=== PATIENT | male | born 1995 | race Caucasian/White ===

== ENCOUNTER 2021-07-25 10:55 | Emergency (ER) | payer OTHER, SELFPAY ==
[2021-07-25 10:56] VITALS: BP 152/88; PULSE 75; RESP 17; TEMP 36.6; O2SAT 95; BMI 43.9
--- NOTE | 2021-07-25 11:10 | EDS_ITS ---
HPI History of Present Illness Chief Complaint: Abd Pain Informant: patient Narrative Narrative: 26-year-old male states at 930 this morning he had been out for a couple hours. He took a Zoloft with some water and developed a sharp pain is in his epigastrium that radiated straight through to his back. He states that he felt that perhaps it was starting to feel like heartburn so he took a couple antacids. He felt nauseous at one point but did not throw up. He has not moved his bowels yet today. He denies any chest symptoms. No fever. No prior surgeries. Does not take any other medications. [facility] Medical History Depression Allergy/AdvReac Type Severity Reaction Status Date / Time Penicillins Allergy Hives Verified 07/25/21 10:55 Surgical History no surgical history no surgical history Social History (Updated 07/25/21 @ 11:[address] Eber Garber, ) current gender identity: male Smoking Status: Never smoker seatbelt use: always ROS ROS ED Constitutional Constitutional ED: Denies chills or weight loss Eyes Eyes: Denies change in vision or diplopia ENT ENT ED: Denies ear pain, rhinorrhea or sore throat Cardiovascular Cardiovascular: Denies chest pain, orthopnea, palpitations or racing heartbeat Respiratory/Chest Respiratory/Chest: Denies cough, dyspnea or orthopnea Gastrointestinal Gastrointestinal: Reports abdominal pain and nausea; Denies diarrhea or vomiting Genitourinary Genitourinary ED: Denies dysuria, hematuria or urinary frequency Musculoskeletal Musculoskeletal: Denies arthralgias or myalgias Integumentary Denies abscess or rash Neurologic Neurologic: Denies headache(s) or weakness Psychiatric Psychiatric: Denies anxiety, depression, suicidal ideation or suicidal thoughts Endocrine Endocrinology: Denies polydipsia, polyphagia or polyuria Allergic/Immunologic Allergic/Immunologic ED: Denies mouth swelling, tongue swelling or urticaria EXAM Physical Exam Const Vital Signs: 07/25/21 10:56 Temperature 97.9 F Temperature Source Temporal Pulse Rate 75 Respiratory Rate 17 Blood Pressure 152/88 H Blood Pressure Mean 109 Pulse Ox 95 Oxygen Delivery Method Room Air Positive well nourished and well developed General Appearance ED: well developed HEENT Reports normocephalic, head/scalp atraumatic and moist mucous membranes Eyes PERRL and EOMs intact bilaterally Neck no lymphadenopathy, supple and no JVD Resp normal respiratory effort and clear to auscultation bilaterally Cardio regular rate, regular rhythm and no murmurs GI normal to inspection, nondistended, normoactive bowel sounds and non-tender Palpation: soft Back/Spine no CVA tenderness and normal ROM Extremity normal to inspection General Extremety ED: Negative for edema General Extremity: Negative for edema Neuro oriented x3 and CN's II-XII intact bilaterally Sensorium / Orientation: alert Motor Exam: strength 5/5 throughout Psych mental status grossly normal Mood & Affect: Negative for depressed or tearful Skin no rashes or lesions noted and no wounds MDM MDM MDM Narrative Medical decision making narrative: Basic blood work was obtained and negative. Patient received a GI cocktail. He states that this did make his pain go away but his symptoms have returned albeit less in intensity. At this point patient most likely has a gastritis. I can prescribe some Carafate and Protonix. Lab Data Attestation: I reviewed the patient's lab results. Labs: Laboratory Results - last 24 hr 07/25/21 07/25/21 11:20 11:20 WBC 5.8 RBC 4.78 Hgb 14.7 Hct 43.0 MCV 90.0 MCH 30.8 MCHC 34.2 RDW Std Deviation 38.5 RDW Coeff of Sadi 11.8 Plt Count 175 MPV 11.1 Immature Gran % (Auto) 0.200 Neut % (Auto) 37.9 L Lymph % (Auto) 47.1 H Hamblen % (Auto) 10.1 H Eos % (Auto) 3.1 Baso % (Auto) 1.6 H Absolute Neuts (auto) 2.2 Absolute Lymphs (auto) 2.71 Nucleated RBC % 0 Sodium 140 Potassium 3.9 Chloride 108 H Carbon Dioxide 25.0 Anion Gap 7 BUN 10 Creatinine 1.04 Estim Creat Clear Calc 112.11 Est GFR (MDRD) Af Amer 112 Est GFR (MDRD) Non-Af 92 BUN/Creatinine Ratio 9.6 L Glucose 95 Calcium 8.7 Total Bilirubin 0.50 AST 42 H ALT 51 Alkaline Phosphatase 115 Total Protein 7.7 Albumin 3.5 Globulin 4.2 Albumin/Globulin Ratio 0.8 L Lipase 54 L Discharge Plan Triage Chief Complaint: Abd Pain ED Provider: Eber Garber Dx/Rx/DC Orders Primary Care Provider: Oswald Shaw
[2021-07-25] MEDS: Mag Hydrox/Al Hydrox/Simeth 30 ML UDC PO (11:23)
[2021-07-25 11:30] LABS: Absolute Lymphocyte Count 2.71 X10^3/uL (0.83-4.51); Absolute Neutrophil Count 2.2 X10^3/uL (2.0-7.7); Basophil# 0.09 X10^3/uL; Basophil% 1.6 % (0-1); Eosinophil# 0.18 X10^3/uL; Eosinophils% 3.1 % (0-5); Hemoglobin 14.7 g/dL (13.0-16.5); Lymphocyte # 2.71 X10^3/ul (0.83-4.51); Lymphocyte % 47.1 % (19-41); Mean Corp Hgb Conc 34.2 g/dL (32-36); Mean Corpuscular Hgb 30.8 pg (27.0-32.0); Mean Platelet Vol. 11.1 fl (6.2-12.0); Monocyte# 0.58 X10^3/uL; Monocyte% 10.1 % (0-10); NRBC Flagged by Analyzer 0 % (0-5); Neutrophil # 2.18 X10^3/uL (2.7-7.7); Neutrophil % 37.9 % (47-70); Platelet Count 175 K/mm3 (150-450); RBC Distribution Width CV 11.8 % (11.6-14.6); RBC Distribution Width SD 38.5 fl (35.1-43.9); Red Blood Count 4.78 M/mm3 (4.6-6.2); White Blood Count 5.8 K/mm3 (4.4-11.0)
[2021-07-25 11:45] LABS: ALB/GLOB Ratio 0.8 RATIO (0.9-2.4); AST(SGOT) 42 U/L (15-37); Alanine Aminotransfer ALT/SGPT 51 U/L (16-61); Albumin, Serum 3.5 g/dL (3.2-5.0); Alkaline Phosphatase 115 U/L (45-117); Anion Gap 7 (5-15); BUN 10 mg/dL (7-18); BUN/Creat Ratio 9.6 RATIO (10-20); Calcium,Total 8.7 mg/dL (8.5-10.1); Chloride 108 mmol/L (98-107); Creatinine, Serum 1.04 mg/dL (0.70-1.30); EST Glomerular Filtration Rate 92 mL/min (>60); Est Glom Filt Rate - Afr Amer 112 mL/min (>60); Estimated Creatinine Clearance 112.11 ml/min; Globulin 4.2 g/dL (2.2-4.2); Glucose 95 mg/dL (74-106); Lipase 54 U/L (73-393); Potassium 3.9 mmol/L (3.5-5.1); Protein, Total 7.7 g/dL (6.4-8.2); Sodium Level 140 mmol/L (136-145)
[2021-07-25 12:17] VITALS: BP 108/77; PULSE 62; RESP 15; O2SAT 98
== END 2021-07-25 12:20 | disposition home or self-care (01) ==
PROVIDERS: Emergency Provider Emergency Medicine; PCP Family Medicine
DX: K29.70 Gastritis, unspecified, without bleeding (principal)
CPT/HCPCS: 80053; 83690; 85025; 99284; A4216

== ENCOUNTER 2025-03-13 19:47 | Emergency (ER) | payer BC, SELFPAY ==
[2025-03-13 19:47] VITALS: BP 153/85; PULSE 121; RESP 17; TEMP 36.4; O2SAT 99
--- NOTE | 2025-03-13 22:09 | EDS_ITS ---
HPI History of Present Illness Chief Complaint: Rash Informant: patient Onset/Context/Timing Onset: Days (4-5) Context: Gradual Onset Timing: Continuous Quality: Pruritic, patchy Location: Generalized Worsened by: Nothing Relieved by: Nothing Narrative Narrative: Patient presents with pruritic rash that has been getting worse over the past 4 to 5 days. Patient states he was recently prescribed a Z-Cameron. Patient states that shortly after he finished this, he developed the generalized rash. Patient states his patchy. Patient states it is pruritic. Patient states nothing makes it worse. Patient states nothing makes it better. Patient denies any other new exposures such as new foods, soaps, shampoos, laundry detergents, fabric softeners, or colognes. Patient states that earlier today he felt like his throat was swelling. Patient states this has resolved. Patient states he has not taken anything at home prior to arrival. Patient states he has a history of an allergy to penicillins but denies any history of allergies to macrolides. [facility] Medical History (Updated 03/13/25 @ 22:[address] Nikko Vazquez DO) Depression Home Medications ?Medication ?Instructions ?Recorded ?Last Taken ?Type prednisone 20 mg tablet 60 mg (3 x 20 mg) PO DAILY # 12 03/13/25 Unknown Rx TABLETS Allergy/AdvReac Type Severity Reaction Status Date / Time Penicillins Allergy Hives Verified 03/13/25 19:51 Surgical History (Updated 03/13/25 @ 22:[address] Nikko Vazquez DO) History of nasal surgery Hx of tonsillectomy Social History Smoking Status: Never smoker seatbelt use: always ROS ROS ED Constitutional Constitutional ED: Denies chills or fever(s) Eyes Eyes: Denies blurry vision or change in vision ENT ENT ED: Denies rhinorrhea or sore throat Cardiovascular Cardiovascular: Denies chest pain or palpitations Respiratory/Chest Respiratory/Chest: Denies cough or dyspnea Gastrointestinal Gastrointestinal: Denies nausea or vomiting Genitourinary Genitourinary ED: Denies dysuria or hematuria Musculoskeletal Musculoskeletal: Denies back pain or neck pain Integumentary Reports rash; Denies abscess Neurologic Neurologic: Denies headache(s) or weakness Allergic/Immunologic Allergic/Immunologic ED: Reports urticaria; Denies mouth swelling EXAM Physical Exam Const Vital Signs: 03/13/25 19:47 Temperature 97.5 F L Temperature Source Temporal Pulse Rate 121 H Respiratory Rate 17 Blood Pressure 153/85 H Blood Pressure Mean 107 Pulse Ox 99 Positive well nourished and well developed General Appearance ED: well developed and NAD HEENT Reports moist mucous membranes Neck supple Resp normal respiratory effort and clear to auscultation bilaterally Cardio regular rate and regular rhythm GI non-tender and non-distended Palpation: soft Extremity normal to inspection General Extremety ED: Negative for edema or tenderness General Extremity: Negative for edema Neuro oriented x3, CN's II-XII intact bilaterally and no sensory deficits noted Sensorium / Orientation: alert Motor Exam: strength 5/5 throughout Psych mental status grossly normal MDM MDM MDM Narrative Medical decision making narrative: Patient was advised that this is probably an allergic reaction to something. It could be related to the Zithromax. Patient was given a dose of prednisone here. Patient is given a prescription for prednisone. Patient was instructed to use Benadryl, Claritin, or Zyrtec as needed for any itching. Patient was instructed to follow-up with his primary care physician in 5 to 7 days. Patient was ad vised he may need allergy testing to determine the true etiology of the allergic reaction. Patient understood and was agreeable with plan. All questions were answered Discharge Plan Triage Chief Complaint: Rash ED Provider: Nikko Vazquez Dx/Rx/DC Orders Clinical Impression: Allergic reaction, Urticaria Instructions: ED Hives (Adult) Prescriptions: New prednisone 20 mg tablet 60 mg PO DAILY Qty: 12 0RF Primary Care Provider: Care Physician,No Primary Referrals: Oswald Shaw MD [Non-Staff] - 5-7 Days Print Language: Eritrean Disposition Disposition: Home, Self Care
--- OUTSIDE RECORDS SUMMARY | 2025-03-13 22:27 | XMS RPT_ITS | CCD ---
Author Organization [facility] Inform ion Partnership [facility] Care Team Providers Care Waste Hand Name Role Phone BRIANNA ADKINS Unavailable Unavailabl e ELIZABETH ALFONSO Unavailable Unavailable Unavailable Primary Care Provider Unavailabl e Allergies Allergy Classification Reported Allergen(s) Allergy Type Date of Onset Reaction(s) Facility (1 source) Penicillins Drug Allergy 03-25-2024 [facility] Medications Current Medications Medication Drug Class(es) Dates Sig (Normalized) Sig (Original) doxycycline hyclate 100 mg oral tablet (1 source) Tetracycline-clas s Drug Start: 03-25-2024 End: 03-30-2024 take 1 tablet by mouth twice daily doxycycline (VIBRA-TABS) 100 mg tablet Indications: Bacterial sinusitis Take 1 tablet by mouth two times a day for 5 days. 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] Onset: 07-18-2018 Episodic Other upper respiratory disease (2 sources) Nasal congestion; Translations: [Nasal congestion] Onset: 07-18-2018 Episodic Other upper respiratory disease (2 sources) Deviated nasal septum; Translations: [Deviated nasal septum] Onset: 07-18-2018 Episodic Other upper respiratory disease (2 sources) Hypertrophy of nasal turbinates; Translations: [Hypertrophy of nasal turbinates] Onset: 07-18-2018 Episodic Other upper respiratory infections (1 source) Bacterial sinusitis; Translations: [Chronic sinusitis, unspecified] 03-25-2024 Chronic Results Test Name Value Interpretation Reference Range Facility CNOVon 03-25-2024 CNOV Office Visit ([facility] ) -- MARIO MATIAS ([id number]) 1995 M Date Time Provider Department 03/25/24 12:30 PM CADY VARGAS [facility] During your visit today, we recorded the following information about you: Temperature Pulse Respiration Blood pressure 98.7 degrees 112/minute 22/minute 138/83 Weight 149 kg Cady Vargas APRN.EYELET RIVETER 03/25/2024 12:43 PM Signed This note was created using [employer]. Subjective Mario Matias is a 28 year old male. HPI Pt has had nasal congestion for the last five days. Review of Systems Constitutional: Positive for fever. HENT: Positive for congestion, rhinorrhea and sinus pressure. Respiratory: Positive for cough. Objective BP 138/83 Pulse 112 Temp 37.1 ?C (98.7 ?F) Resp 22 Wt (!) 149 kg (328 lb 7.8 oz) SpO2 98% Physical Exam Vitals and nursing note reviewed. Constitutional: General: He is not in acute distress. Appearance: Normal appearance. He is not ill-appearing. HENT: Head: Normocephalic. Mouth/Throat: Mouth: Mucous membranes are moist. Eyes: Conjunctiva/sclera: Conjunctivae normal. Cardiovascular: Rate and Rhythm: Normal rate and regular rhythm. Pulmonary: Effort: Pulmonary effort is normal. Breath sounds: Normal breath sounds. Musculoskeletal: General: Normal range of motion. Cervical back: Normal range of motion. Skin: General: Skin is warm and dry. Neurological: General: No focal deficit present. Mental Status: He is alert. Psychiatric: Mood and Affect: Mood normal. Behavior: Behavior normal. Assessment and Plan ASSESSMENT/PLAN: 1. Bacterial sinusitis - ICD9: 473.9, 041.9, ICD10: J32.9, B96.89 - Will begin treatment with as per antibiotic as written, see orders - Supportive care with plenty of fluids, rest, and analgesia prn. - Follow up in one week if symptoms persist or worsen. -Discussed monitoring of symptoms but pt prefers to start antibiotics as he is already five days into his symptoms - DOXYCYCLINE HYCLATE 100 MG TABLET Cady Vargas APRN.EYELET RIVETER Allergies As of Date: 03/25/2024 Noted Allergy Reaction PENICILLINS 03/25/2024 4 - Hives Date Reviewed: 03/25/2024 Reviewed by: Cady Vargas APRN.CNP - Fully Assessed Reason for Visit: Sinus Problem [99] Cmt: Pressure and pain in sinus, nasal drainage, post nasal, nasal and head congestion x 5 days Primary Visit Diagnosis:Bacterial sinusitis [J32.9, B96.89] Order(s):doxycycline (VIBRA-TABS) 100 mg tabletTake 1 tablet by mouth two times a day for 5 days.Disp: 10 tabletRfl: 0 Prescriptions as of 03/25/2024 - doxycycline (VIBRA-TABS) 100 mg tablet Take 1 tablet by mouth two times a day for 5 days. Problem List As Of Date: 03/25/2024 (None) Prescriptions ordered this encounter Disp Refills Start End DOXYCYCLINE HYCLATE 100 MG TABLET 10 t* 0 03/25/2024 03/30/2024 Route: ORAL Sig: Take 1 tablet by mouth two times a day for 5 days. Encounter Status:Closed by CADY VARGAS on 03/25/24 Normal [facility] CBC W/Diff, Automatedon 10-2 Absolute Lymph 2.71 X10 3/uL Normal 0.83-4.51 [facility] Comment on above: Performed By: #### L 501.2450, L500.4050, L100.0100 #### [facility] [address] [place], [address] Absolute Neut 2.2 X10 3/uL Normal 2.0-7.7 [facility] Comment on above: Performed By: #### L 501.2450, L500.4050, L100.0100 #### [facility] [address] [place], [address] Basophils/100 WBC (Bld) 1.6 % High 0-1 [facility] Comment on above: Performed By: #### L 501.2450, L500.4050, L100.0100 #### [facility] [address] [place], [address] Eosinophils/100 WBC (Bld) 3.1 % Normal 0-5 [facility] Comment on above: Performed By: #### L 501.2450, L500.4050, L100.0100 #### [facility] [address] [place], [address] Erythrocyte distribution width (RBC) [Ratio] 11.8 % Normal 11.6-14.6 [facility] Comment on above: Performed By: #### L 501.2450, L500.4050, L100.0100 #### [facility] [address] [place], [address] Hematocrit (Bld) [Volume fraction] 43.0 % Normal 40-54 [facility] Comment on above: Performed By: #### L 501.2450, L500.4050, L100.0100 #### [facility] [address] [place], [address] Hemoglobin (Bld) [Mass/Vol] 14.7 g/dL Normal 13.0-16.5 [facility] Comment on above: Performed By: #### L 501.2450, L500.4050, L100.0100 #### [facility] [address] [place], [address] IG% 0.200 Normal 0.0-0.9 [facility] Comment on above: Result Comment: IG% - Immature Granulocytes (promyelocytes, myelocytes and metamyelocytes) > 1% indicates that a LEFT SHIFT is Present. Performed By: #### L 501.2450, L500.4050, L100.0100 #### [facility] [address] [place], [address] Lymphocytes/100 WBC (Bld) 47.1 % High 19-41 [facility] Comment on above: Performed By: #### L 501.2450, L500.4050, L100.0100 #### [facility] [address] [place], [address] MCH (RBC) [Entitic mass] 30.8 pg Normal 27.0-32.0 [facility] Comment on above: Performed By: #### L 501.2450, L500.4050, L100.0100 #### [facility] [address] [place], [address] MCHC (RBC) [Mass/Vol] 34.2 g/dL Normal 32-36 [facility] Comment on above: Performed By: #### L 501.2450, L500.4050, L100.0100 #### [facility] [address] [place], [address] MCV (RBC) [Entitic vol] 90.0 fL Normal 80-94 [facility] Comment on above: Performed By: #### L 501.2450, L500.4050, L100.0100 #### [facility] [address] [place], [address] Monocytes/100 WBC (Bld) 10.1 % High 0-10 [facility] Comment on above: Performed By: #### L 501.2450, L500.4050, L100.0100 #### [facility] [address] [place], [address] Neutrophils/100 WBC (Bld) 37.9 % Low 47-70 [facility] Comment on above: Performed By: #### L 501.2450, L500.4050, L100.0100 #### [facility] [address] [place], [address] Nucleated RBC (Bld) [#/Vol] 0 10*3/uL Normal 0-5 [facility] Comment on above: Performed By: #### L 501.2450, L500.4050, L100.0100 #### [facility] [address] [place], [address] Platelet mean volume (Bld) [Entitic vol] 11.1 fL Normal 6.2-12.0 [facility] Comment on above: Performed By: #### L 501.2450, L500.4050, L100.0100 #### [facility] [address] [place], [address] Platelets (Bld) [#/Vol] 175 10*3/uL Normal 150-450 [facility] Comment on above: Performed By: #### L 501.2450, L500.4050, L100.0100 #### [facility] [address] [place], [address] RBC (Bld) [#/Vol] 4.78 10*6/uL Normal 4.6-6.2 [facility] Comment on above: Performed By: #### L 501.2450, L500.4050, L100.0100 #### [facility] [address] [place], [address] RDW SD 38.5 fl Normal 35.1-43.9 [facility] Comment on above: Performed By: #### L 501.2450, L500.4050, L100.0100 #### [facility] [address] [place], [address] WBC (Bld) [#/Vol] 5.8 10*3/uL Normal 4.4-11.0 [facility] Comment on above: Performed By: #### L 501.2450, L500.4050, L100.0100 #### [facility] [address] [place], [address] Comprehensive Metabolic Prof ilon 07-25-2021 Albumin [Mass/Vol] 3.5 g/dL Normal 3.2-5.0 [facility] Comment on above: Performed By: #### L 501.2450, L500.4050, L100.0100 #### [facility] [address] [place], [address] Albumin/Globulin [Mass ratio] 0.8 {ratio} Low 0.9-2.4 [facility] Comment on above: Performed By: #### L 501.2450, L500.4050, L100.0100 #### [facility] [address] [place], [address] ALK P 115 U/L Normal 45-117 [facility] Comment on above: Performed By: #### L 501.2450, L500.4050, L100.0100 #### [facility] [address] [place], [address] ALT [Catalytic activity/Vol] 51 U/L Normal 16-61 [facility] Comment on above: Performed By: #### L 501.2450, L500.4050, L100.0100 #### [facility] [address] [place], [address] AST [Catalytic activity/Vol] 42 U/L High 15-37 [facility] Comment on above: Result Comment: Slig ht Hemolysis, Result may be falsely increased. Performed By: #### L 501.2450, L500.4050, L100.0100 #### [facility] [address] [place], [address] Bilirubin [Mass/Vol] 0.50 mg/dL Normal 0.20-1.00 [facility] Comment on above: Result Comment: For patients on eltrombopag therapy, use of Dimension [place] TBIL is not recommended. Performed By: #### L 501.2450, L500.4050, L100.0100 #### [facility] [address] [place], [address] BUN/CRE 9.6 RATIO Low 10-20 [facility] Comment on above: Performed By: #### L 501.2450, L500.4050, L100.0100 #### [facility] [address] [place], [address] CA,Total 8.7 mg/dL Normal 8.5-10.1 [facility] Comment on above: Performed By: #### L 501.2450, L500.4050, L100.0100 #### [facility] [address] [place], [address] Chloride [Moles/Vol] 108 mmol/L High 98-107 [facility] Comment on above: Performed By: #### L 501.2450, L500.4050, L100.0100 #### [facility] [address] [place], [address] CO2 [Moles/Vol] 25.0 mmol/L Normal 21.0-32.0 [facility] Comment on above: Performed By: #### L 501.2450, L500.4050, L100.0100 #### [facility] [address] [place], [address] Creatinine [Mass/Vol] 1.04 mg/dL Normal 0.70-1.30 [facility] Comment on above: Result Comment: The validity of the calculated GFR GFRAA in patients over 70 years has not been determined. Clinical correlation is essential. Performed By: #### L 501.2450, L500.4050, L100.0100 #### [facility] [address] [place], [address] ECRCL 112.11 ml/min Normal [facility] Comment on above: Performed By: #### L 501.2450, L500.4050, L100.0100 #### [facility] [address] [place], [address] EST GFR - AA 112 mL/min Normal >60 [facility] Comment on above: Result Comment: Afri can [place] GFR Calc Performed By: #### L 501.2450, L500.4050, L100.0100 #### [facility] [address] [place], [address] GAP 7 Normal 5-15 [facility] Comment on above: Performed By: #### L 501.2450, L500.4050, L100.0100 #### [facility] [address] [place], [address] GFR/1.73 sq M.predicted among non-blacks MDRD (S/P/Bld) [Vol rate/Area] 92 mL/min/{1.73_m2} Normal >60 [facility] Comment on above: Result Comment: Non- GFR Calc Performed By: #### L 501.2450, L500.4050, L100.0100 #### [facility] [address] [place], [address] Globulin (S) [Mass/Vol] 4.2 g/dL Normal 2.2-4.2 [facility] Comment on above: Performed By: #### L 501.2450, L500.4050, L100.0100 #### [facility] [address] [place], [address] Glucose [Mass/Vol] 95 mg/dL Normal 74-106 [facility] Comment on above: Result Comment: Todd de souza note revised GLUCOSE reference range effective 2017. Performed By: #### L 501.2450, L500.4050, L100.0100 #### [facility] [address] [place], [address] Potassium [Moles/Vol] 3.9 mmol/L Normal 3.5-5.1 [facility] Comment on above: Result Comment: Slig ht Hemolysis, Result may be falsely increased. Performed By: #### L 501.2450, L500.4050, L100.0100 #### [facility] [address] [place], [address] Sodium [Moles/Vol] 140 mmol/L Normal 136-145 [facility] Comment on above: Performed By: #### L 501.2450, L500.4050, L100.0100 #### [facility] [address] [place], [address] T PROT 7.7 g/dL Normal 6.4-8.2 [facility] Comment on above: Performed By: #### L 501.2450, L500.4050, L100.0100 #### [facility] [address] [place], [address] Urea nitrogen [Mass/Vol] 10 mg/dL Normal 7-18 [facility] Comment on above: Performed By: #### L 501.2450, L500.4050, L100.0100 #### [facility] [address] [place], [address] Emergency Department Summary on 07-25-2021 Emergency Department Summary [facility] Medical Records Department [address] [place] [address] Emergency Department Summary 07/25/21 MR#: [id number] Acct: [id number] Name: MARIO MATIAS Rep #: [id number] : 1995 26 From: Eber Garber DO PCP: Dr. Elizabeth Alfonso MD Status:DEP ER Location: ED HPI History of Present Illness Chief Complaint: Abd Pain Informant: patient Narrative Narrative: 26-year-old male states at 930 this morning he had been out for a couple hours. He took a Zoloft with some water and developed a sharp pain is in his epigastrium that radiated straight through to his back. He states that he felt that perhaps it was starting to feel like heartburn so he took a couple antacids. He felt nauseous at one point but did not throw up. He has not moved his bowels yet today. He denies any chest symptoms. No fever. No prior surgeries. Does not take any other medications. [facility] Medical History Depression Allergy/AdvReac Type Severity Reaction Status Date / Time Penicillins Allergy Hives Verified 07/25/21 10:55 Surgical History no surgical history no surgical history Social History (Updated 07/25/21 @ 11:[address] Eber Garber, DO) current gender identity: male Smoking Status: Never smoker seatbelt use: always ROS ROS ED Constitutional Constitutional ED: Denies chills or weight loss Eyes Eyes: Denies change in vision or diplopia ENT ENT ED: Denies ear pain, rhinorrhea or sore throat Cardiovascular Cardiovascular: Denies chest pain, orthopnea, palpitations or racing heartbeat Respiratory/Chest Respiratory/Chest: Denies cough, dyspnea or orthopnea Gastrointestinal Gastrointestinal: Reports abdominal pain and nausea; Denies diarrhea or vomiting Genitourinary Genitourinary ED: Denies dysuria, hematuria or urinary frequency Musculoskeletal Musculoskeletal: Denies arthralgias or myalgias Integumentary Denies abscess or rash Neurologic Neurologic: Denies headache(s) or weakness Psychiatric Psychiatric: Denies anxiety, depression, suicidal ideation or suicidal thoughts Endocrine Endocrinology: Denies polydipsia, polyphagia or polyuria Allergic/Immunologic Allergic/Immunologic ED: Denies mouth swelling, tongue swelling or urticaria EXAM Physical Exam Const Vital Signs: 07/25/21 10:56 Temperature 97.9 F Temperature Source Temporal Pulse Rate 75 Respiratory Rate 17 Blood Pressure 152/88 H Blood Pressure Mean 109 Pulse Ox 95 Oxygen Delivery Method Room Air Positive well nourished and well developed General Appearance ED: well developed HEENT Reports normocephalic, head/scalp atraumatic and moist mucous membranes Eyes PERRL and EOMs intact bilaterally Neck no lymphadenopathy, supple and no JVD Resp normal respiratory effort and clear to auscultation bilaterally Cardio regular rate, regular rhythm and no murmurs GI normal to inspection, nondistended, normoactive bowel sounds and non-tender Palpation: soft Back/Spine no CVA tenderness and normal ROM Extremity normal to inspection General Extremety ED: Negative for edema General Extremity: Negative for edema Neuro oriented x3 and CN's II-XII intact bilaterally Sensorium / Orientation: alert Motor Exam: strength 5/5 throughout Psych mental status grossly normal Mood Affect: Negative for depressed or tearful Skin no rashes or lesions noted and no wounds MDM MDM MDM Narrative Medical decision making narrative: Basic blood work was obtained and negative. Patient received a GI cocktail. He states that this did make his pain go away but his symptoms have returned albeit less in intensity. At this point patient most likely has a gastritis. I can prescribe some Carafate and Protonix. Lab Data Attestation: I reviewed the patient's lab results. Labs: Laboratory Results - last 24 hr 07/25/21 07/25/21 11:20 11:20 WBC 5.8 RBC 4.78 Hgb 14.7 Hct 43.0 MCV 90.0 MCH 30.8 MCHC 34.2 RDW Std Deviation 38.5 RDW Coeff of Sadi 11.8 Plt Count 175 MPV 11.1 Immature Gran % (Auto) 0.200 Neut % (Auto) 37.9 L Lymph % (Auto) 47.1 H [place] % (Auto) 10.1 H Eos % (Auto) 3.1 Baso % (Auto) 1.6 H Absolute Neuts (auto) 2.2 Absolute Lymphs (auto) 2.71 Nucleated RBC % 0 Sodium 140 Potassium 3.9 Chloride 108 H Carbon Dioxide 25.0 Anion Gap 7 BUN 10 Creatinine 1.04 Estim Creat Clear Calc 112.11 Est GFR (MDRD) Af Amer 112 Est GFR (MDRD) Non-Af 92 BUN/Creatinine Ratio 9.6 L Glucose 95 Calcium 8.7 Total Bilirubin 0.50 AST 42 H ALT 51 Alkaline Phosphatase 115 Total Protein 7.7 Albumin 3.5 Globulin 4.2 Albumin/Globulin Ratio 0.8 L Lipase 54 L Discharge Asaf (more content not included)... Normal [facility] Lipaseon 07-25-2021 Lipase [Catalytic activity/Vol] 54 U/L Low 73-393 [facility] Comment on above: Performed By: #### L 501.6360, L500.4050, L100.0100 #### [facility] [address] [place], [address] Final Surgical Pathology Rep vlad 07-21-2018 Final Surgical Pathology Report . 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 LEFT TONSIL -- REACTIVE LYMPHOID HYPERPLASIA WITH ACTINOMYCOTIC GRANULES IN THE TONSILLAR CRYPTS.CLINICAL INFORMATION:ACQUIRED DEFORMITY OF NOSE / DEVIATED NASAL SEPTUM / HYPERTROPHY OF TONSILS / HYPERTROPHY OF NASAL TURBINATESSPECIMEN:A TONSILS - RIGHT PINNEDGROSS DESCRIPTION:Received in formalin and consists of a right and left tonsil. The right tonsil measures 3.7 x 2.8 x 1.8 cm and has mucosa on one surface that is smooth, pale-dickinson and grossly unremarkable. On section, the cut surface is pale-dickinson and lobulated with no gross lesions. The left tonsil measures 4 x 3 x 2 cm and has pale-dickinson mucosa on one surface that is grossly unremarkable. On section the cut surface is pale-dickinson and lobulated with no gross lesions. [employer] sections submitted in two cassettes with the right tonsil in cassette #1 and the left tonsil in cassette #2. dictated by Mary Swain M.D.Dictated by NICHOLAS SWAIN MDMICROSCOPIC DESCRIPTION:Slides reviewed.Electronically Signed byPathology Report verified by [facility] Hospital[facility]ronically signed by NICHOLAS SWAIN MDSign out Date: 07/21/2018 09:45Performing Lab: [facility], [address] [place] [address] ([place]) Comment on above: Performed By: #### S PFR ####[place] [address] Vital Signs Date Time Vital Sign Value Performing Clinician Faci nickolas 03-25-2024 12:35-0400 Body temperature 98.71 [degF] Cady Moomaw PHOTO EDITOR.EYELET RIVETER Work Phone: [facility] 03-25-2024 12:35-0400 Body weight 149 kg Cady Moomaw PHOTO EDITOR.EYELET RIVETER Work Phone: [facility] 03-25-2024 12:35-0400 Diastolic blood pressure 83 mm[Hg] Cady Moomaw PHOTO EDITOR.EYELET RIVETER Work Phone: [facility] 03-25-2024 12:35-0400 Heart rate 112 /min Cady Moomaw PHOTO EDITOR.EYELET RIVETER Work Phone: [facility] 03-25-2024 12:35-0400 Respiratory rate 22 /min Cady Conradomaw PHOTO EDITOR.EYELET RIVETER Work Phone: [facility] 03-25-2024 12:35-0400 SaO2% (BldA) [Mass fraction] 98 % Cady Moomaw PHOTO EDITOR.EYELET RIVETER Work Phone: [facility] 03-25-2024 12:35-0400 Systolic blood pressure 138 mm[Hg] Cady Moomaw PHOTO EDITOR.EYELET RIVETER Work Phone: [facility] Encounters Encounter Date Encounter Type Care Provider Facility Start: 03-25-2024 End: 03-25-2024 ambulatory Facility:[facility] Start: 03-25-2024 End: 03-25-2024 Patient encounter procedure Cady Conradomaw PHOTO EDITOR.EYELET RIVETER Work Phone: [facility] Comment on above: Bacterial sinusitis (Primary Dx) Start: 07-18-2018 End: 07-23-2018 Patient encounter [facility] Facility:[facility] Plan of Treatment Date Care Activity Detail Author Start: 06-03-2024 Influenza vaccination Influenz a Vaccine (Season Ended) [facility] Start: 10-03-2023 Behavioral Health Screening Behavioral Health Screening [facility] Start: 06-03-2023 Covid-19 Vaccine ( season) Covid-19 Vaccine ( season) [facility] Start: 2014 Hepatitis C screening Hepatitis C [facility] Start: 2014 HIV screening HIV Screening [facility] Start: 2007 Urine microalbumin profile DTa P,Tdap,Td Vaccine (5 - Tdap) [facility] Payers Date Payer Category Payer Unknown [id number] 1995 Unknown [id number] Social History Date Type Detail Facility Start: 03-25-2024 Tobacco smoking stat us PRIS Never smoked tobacco [facility] Start: 03-25-2024 Tobacco use and exposure Smoke less tobacco non-user [facility] Start: 03-25-2024 History of Social function [facility] Start: 03-25-2024 Tobacco use panel [facility] Start: 1995 Sex Assigned At Not on file [facility] History of Present illness Narrative 03-25-2024 Cady Vargas APRN.EYELET RIVETER - 03/25/2024 12:38 PM EDT Note Date & Type Note Facility 03-25-2024 History of Presen t illness Narrative This note was created using [employer]. Subjective Mario Matias is a 28 year old male. HPI Pt has had nasal congestion for the last five days. Review of Systems Constitutional: Positive for fever. HENT: Positive for congestion, rhinorrhea and sinus pressure. Respiratory: Positive for cough. Objective BP 138/83 Pulse 112 Temp 37.1 C (98.7 F) Resp 22 Wt (!) 149 kg (328 lb 7.8 oz) SpO2 98% Physical Exam Vitals and nursing note reviewed. Constitutional: General: He is not in acute distress. Appearance: Normal appearance. He is not ill-appearing. HENT: Head: Normocephalic. Mouth/Throat: Mouth: Mucous membranes are moist. Eyes: Conjunctiva/sclera: Conjunctivae normal. Cardiovascular: Rate and Rhythm: Normal rate and regular rhythm. Pulmonary: Effort: Pulmonary effort is normal. Breath sounds: Normal breath sounds. Musculoskeletal: General: Normal range of motion. Cervical back: Normal range of motion. Skin: General: Skin is warm and dry. Neurological: General: No focal deficit present. Mental Status: He is alert. Psychiatric: Mood and Affect: Mood normal. Behavior: Behavior normal. Assessment and Plan ASSESSMENT/PLAN: 1. Bacterial sinusitis - ICD9: 473.9, 041.9, ICD10: J32.9, B96.89 - Will begin treatment with as per antibiotic as written, see orders - Supportive care with plenty of fluids, rest, and analgesia prn. - Follow up in one week if symptoms persist or worsen. -Discussed monitoring of symptoms but pt prefers to start antibiotics as he is already five days into his symptoms - DOXYCYCLINE HYCLATE 100 MG TABLET Cady Vargas APRN.CNP documented in this encounter [facility] Progress note 03-25-2024 Note Date & Type Note Facility 03-25-2024 Note HNO ID: [id number] Author: CADY VARGAS APRN.CNP Service: ? Author Type: Nurse Practitioner Type: Progress Notes Filed: 03/25/2024 12:43 Note Text: This note was created using [employer]. Subjective Mario Matias is a 28 year old male. HPI Pt has had nasal congestion for the last five days. Review of Systems Constitutional: Positive for fever. HENT: Positive for congestion, rhinorrhea and sinus pressure. Respiratory: Positive for cough. Objective BP 138/83 Pulse 112 Temp 37.1 ?C (98.7 ?F) Resp 22 Wt (!) 149 kg (328 lb 7.8 oz) SpO2 98% Physical Exam Vitals and nursing note reviewed. Constitutional: General: He is not in acute distress. Appearance: Normal appearance. He is not ill-appearing. HENT: Head: Normocephalic. Mouth/Throat: Mouth: Mucous membranes are moist. Eyes: Conjunctiva/sclera: Conjunctivae normal. Cardiovascular: Rate and Rhythm: Normal rate and regular rhythm. Pulmonary: Effort: Pulmonary effort is normal. Breath sounds: Normal breath sounds. Musculoskeletal: General: Normal range of motion. Cervical back: Normal range of motion. Skin: General: Skin is warm and dry. Neurological: General: No focal deficit present. Mental Status: He is alert. Psychiatric: Mood and Affect: Mood normal. Behavior: Behavior normal. Assessment and Plan ASSESSMENT/PLAN: 1. Bacterial sinusitis - ICD9: 473.9, 041.9, ICD10: J32.9, B96.89 - Will begin treatment with as per antibiotic as written, see orders - Supportive care with plenty of fluids, rest, and analgesia prn. - Follow up in one week if symptoms persist or worsen. -Discussed monitoring of symptoms but pt prefers to start antibiotics as he is already five days into his symptoms - DOXYCYCLINE HYCLATE 100 MG TABLET Cady Vargas APRN.CNP [facility] Evaluation note Note Date & Type Note Facility Evaluation note Diagnosis Bacterial sinusitis- Primary Unspecified sinusitis (chronic) documented in this encounter [facility] Summary Purpose Family History No Family History Records FoundNo Family History Records FoundNo Family History Records Found Advance Directives No Advanced Directives Records FoundNo Advanced Directives Records FoundNo Advanced Directives Records Found Additional Source Comments (unrecognized sect ion and content) No Status Records FoundNo Status Records FoundNo Status Records Found INFORMATION SOURCE (unrecogn ized section and content) DATE CREATED AUTHOR 08/22/2018 [facility] ([place]) DATE CREATED AUTHOR AUTHOR'S ORGANIZ ATION 11/17/2021 [facility] DATE CREATED AUTHOR AUTHOR'S ORGANIZ ATION 03/25/2024 [facility] Source Comments (unrecognize d section and content) In the event this informatio n is protected by the Federal Confidentiality of Alcohol and Drug Abuse Patient Records regulations: The Federal rules restrict any use of the information to criminally investigate or prosecute any alcohol or drug abuse patient.[facility] Reason for Visit (unrecogniz ed section and content) Reason Comments Sinus Problem Pressure and pain in sinus, nasal drainage, post nasal, nasal and head congestion x 5 days FOR RECORDS PERTAINING TO PATIENTS WHO ARE OR HAVE BEEN ENROLLED IN A CHEMICAL DEPENDENCY/SUBSTANCEABUSE PROGRAM, SOME INFORMATION MAY BE OMITTED. This clinical summary was aggregated from multiple sources. Caution should be exercised in using it in the provision of clinical care. This summary normalizes information from multiple sources, and as a consequence, information in this document may materially change the coding, format and clinical context of patient data. In addition, data may be omitted in some cases. CLINICAL DECISIONS SHOULD BE BASED ON THE PRIMARY CLINICAL RECORDS. [employer] [facility]. provides no warranty or guarantee of the accuracy or completeness of information in this document.
[2025-03-13] MEDS: predniSONE 20 MG Tablet 60 MG PO (23:01)
[2025-03-13 23:02] VITALS: BP 114/71; PULSE 85; RESP 16; TEMP 36.3; O2SAT 100
== END 2025-03-13 23:03 | disposition home or self-care (01) ==
PROVIDERS: Emergency Provider Emergency Medicine; Visit Provider Emergency Medicine
DX: L50.9 Urticaria, unspecified (principal); T78.40XA Allergy, unspecified, initial encounter
CPT/HCPCS: 99282